=== PATIENT | female | born 1990 | race Caucasian/White ===

== ENCOUNTER 2018-12-05 07:06 | Emergency (ER) | payer MEDICAID, OTHER ==
[~2018-12-05] VITALS: Ht 165.1 cm; Wt 96.9 kg
[~2018-12-05 07:06] MED LIST: HYDR-4383 PO
[2018-12-05 07:10] VITALS: BP 130/65
[2018-12-05] MEDS ORDERED: AMOX500C2 PO (07:29)
== END 2018-12-05 07:44 | disposition home or self-care (01) ==
LOC: ER 07:07
DX: H66.91 Otitis media, unspecified, right ear (principal); F17.200 Nicotine dependence, unspecified, uncomplicated; F12.10 Cannabis abuse, uncomplicated; Z79.899 Other long term (current) drug therapy
CPT/HCPCS: 99283

== ENCOUNTER 2018-12-23 08:38 | Emergency (ER) | payer MEDICAID, OTHER ==
[~2018-12-23] VITALS: Ht 165.1 cm; Wt 90.0 kg
[2018-12-23 08:43] VITALS: BP 145/56
[2018-12-23] MEDS ORDERED: CITA20TA19 PO (09:12)
== END 2018-12-23 09:46 | disposition home or self-care (01) ==
LOC: ER 08:39
DX: F41.8 Other specified anxiety disorders (principal); Z76.0 Encounter for issue of repeat prescription; F12.90 Cannabis use, unspecified, uncomplicated; Z79.899 Other long term (current) drug therapy
CPT/HCPCS: 99283

== ENCOUNTER 2020-07-03 12:45 | Emergency (ER) | payer MEDICAID, OTHER ==
[~2020-07-03] VITALS: Ht 167.6 cm; Wt 86.8 kg
[~2020-07-03 12:45] MED LIST changes: +CITA20TA19 PO
[2020-07-03 12:56] VITALS: BP 127/71
[2020-07-03] MEDS ORDERED: CITA20TA28 PO (13:04)
== END 2020-07-03 13:22 | disposition home or self-care (01) ==
LOC: ER 12:45
DX: F32.9 Major depressive disorder, single episode, unspecified (principal); F41.9 Anxiety disorder, unspecified; F12.90 Cannabis use, unspecified, uncomplicated; Z98.890 Other specified postprocedural states; Z79.899 Other long term (current) drug therapy
CPT/HCPCS: 99281; 99283

== ENCOUNTER 2020-10-30 09:16 | Emergency (ER) | payer MEDICAID ==
[~2020-10-30] VITALS: Ht 167.6 cm; Wt 95.0 kg
[2020-10-30 09:21] VITALS: BP 148/78
[2020-10-30] MEDS ORDERED: CITA20TA28 PO (10:03)
== END 2020-10-30 10:10 | disposition home or self-care (01) ==
LOC: ER 09:17
DX: F32.9 Major depressive disorder, single episode, unspecified (principal); F41.9 Anxiety disorder, unspecified; F12.90 Cannabis use, unspecified, uncomplicated; Z98.890 Other specified postprocedural states; Z79.899 Other long term (current) drug therapy
CPT/HCPCS: 99283

== ENCOUNTER 2021-07-19 15:46 | Emergency (ER) | payer MEDICAID ==
[~2021-07-19] VITALS: Ht 167.6 cm; Wt 95.5 kg
[2021-07-19 15:53] VITALS: BP 157/77
[2021-07-19] MEDS ORDERED: CITA20TA28 PO (17:23)
== END 2021-07-19 17:48 | disposition home or self-care (01) ==
LOC: ER 15:47
DX: F41.9 Anxiety disorder, unspecified (principal); F32.9 Major depressive disorder, single episode, unspecified; F12.10 Cannabis abuse, uncomplicated; Z76.0 Encounter for issue of repeat prescription
CPT/HCPCS: 99281

== ENCOUNTER 2021-10-16 08:59 | Emergency (ER) | payer MEDICAID ==
[~2021-10-16] VITALS: Ht 160 cm; Wt 97.7 kg
[~2021-10-16 08:59] MED LIST changes: +CITA20TA28 PO
[2021-10-16] MEDS ORDERED: CITA20TA28 PO (10:27)
== END 2021-10-16 10:46 | disposition home or self-care (01) ==
LOC: ER 08:59
DX: F32.9 Major depressive disorder, single episode, unspecified (principal); F41.9 Anxiety disorder, unspecified; Z76.0 Encounter for issue of repeat prescription; Z79.899 Other long term (current) drug therapy
CPT/HCPCS: 99281

== ENCOUNTER 2022-08-23 14:54 | Emergency (ER) | payer MEDICAID | END 2022-08-23 16:52 | disposition left against medical advice (07) | LOC: ER 14:54 | DX: R07.9 Chest pain, unspecified (principal); Z53.21 Procedure and treatment not carried out due to patient leaving prior to being seen by health care provider | CPT/HCPCS: 93005 ==

== ENCOUNTER → 2023-10-24 | Emergency (ER) | payer MEDICAID ==
[~2023-10-24] VITALS: Ht 167.6 cm; Wt 95.5 kg
[~2023-10-24] MED LIST changes: +NAPR-56 PO; +ketorolac trometh inj. 60 MG/2 ML VIAL IM ONE
--- NOTE | 2023-10-24 12:51 | NUR ---
tech softrolled, pt RIGHT lower leg, tech then applied plaster for ankle stirrup and posterior leg (hayder). Tech then applied softroll over the top of the plaster, tech applied estelita wrap over the softroll. Haileyero vascular intact, june informed pt not to get splint wet, not to take splint off and that if pt had any discomfort, numbness or tingling to come back to get it fixed. Pt stated they have had crutches previously, PA looked at splint and stated it was appropriate.
[2023-10-24 13:25] VITALS: BP 133/78; PULSE 67; RESP 16; TEMP 98.4; O2SAT 98
--- NOTE | 2023-10-24 15:14 | NUR ---
I have reviewed and agree with all interventions, assessments performed and documented by Mary GUTIERREZ LVN.
== END | disposition home or self-care (01) ==
LOC: ER 10:59
DX: S82.61XA Displaced fracture of lateral malleolus of right fibula, initial encounter for closed fracture (principal); X58.XXXA Exposure to other specified factors, initial encounter; Y93.89 Activity, other specified; Y92.89 Other specified places as the place of occurrence of the external cause; Y99.8 Other external cause status
CPT/HCPCS: 29515; 73610; 96372; 99284; J1885; A6449

== ENCOUNTER 2023-12-02 11:29 | Emergency (ER) | payer MEDICAID ==
[~2023-12-02] VITALS: Ht 165.1 cm; Wt 97.3 kg
[~2023-12-02 11:29] MED LIST changes: -NAPR-56 PO; -ketorolac trometh inj. 60 MG/2 ML VIAL IM ONE
[2023-12-02 11:43] VITALS: TEMP 97.2
[2023-12-02] MEDS ORDERED: predniSONE 20 mg tablet PO ONE (13:50)
[2023-12-02] MEDS ORDERED: amox tr/potassium clavulanate 875/125mg TAB PO ONE (13:50)
[2023-12-02] MEDS ORDERED: PRED20TA PO (14:28)
[2023-12-02] MEDS ORDERED: ALBU8HFA PO (14:28)
[2023-12-02] MEDS ORDERED: AMOX-117 PO (14:28)
[2023-12-02 14:50] VITALS: BP 146/73; PULSE 115; RESP 18; O2SAT 92
== END 2023-12-02 14:50 | disposition home or self-care (01) ==
LOC: ER 11:29
DX: J20.9 Acute bronchitis, unspecified (principal)
CPT/HCPCS: 71045; 99283; J7512

== ENCOUNTER 2024-12-14 04:47 | Emergency (ER) | payer MEDICAID ==
[~2024-12-14] VITALS: Ht 167.6 cm; Wt 92.2 kg
[2024-12-14 04:50] VITALS: BP 154/58; PULSE 69; O2SAT 97
[2024-12-14] MEDS ORDERED: HYDR-3965 PO (05:11)
[2024-12-14] MEDS ORDERED: CYCL-1 PO (05:11)
[2024-12-14 05:28] VITALS: RESP 14
[2024-12-14] MEDS: ketorolac trometh 15mg/ml vial 15 MG/ML ML IM ONE (05:28)
[2024-12-14] MEDS: HYDROcodone/acetaminophen 5mg/325mg tablet PO ONE (05:28)
[2024-12-14] MEDS: ondansetron 4mg rapidly disintigrating tab PO ONE (05:28)
[2024-12-14] MEDS: orphenadrine citrate 60mg/2ml inj. IM ONE (05:28)
[2024-12-14 05:38] VITALS: TEMP 97.3
== END 2024-12-14 05:40 | disposition home or self-care (01) ==
LOC: ER 04:48
DX: M43.6 Torticollis (principal); R11.10 Vomiting, unspecified; F41.9 Anxiety disorder, unspecified; F32.A Depression, unspecified; F12.90 Cannabis use, unspecified, uncomplicated; Z79.899 Other long term (current) drug therapy; Z98.890 Other specified postprocedural states
CPT/HCPCS: 96372; 99284; J1885; J2360